=== PATIENT | male | born 1960 | race Caucasian/White ===

== ENCOUNTER 2021-01-02 14:12 | Inpatient (IN) ==
[2021-01-02 15:58] LABS: Basophils % 0.3 % (0.0-0.8); Eosinophils # 0.1 10*3/uL (0.0-0.87); Eosinophils % 1.6 % (0.00-10.9); Hematocrit 20.6 VOL% (42.0-52.0); Immature Granulocytes Absolute 0.03 #; Lymphocytes # 0.9 10*3/uL (1.4-4.0); Lymphocytes % 28.2 % (21.2-54.2); Mean Corpuscular HGB Conc 25.2 GM/DL (32-36); Mean Corpuscular Volume 64.4 FL (87-102); Mean Platelet Volume 8.7 FL (9.6-12.0); Monocytes % 12.2 % (1.7-12.7); NRBC # 0.04 10*3/uL; Neutrophils % 56.7 % (38.7-73.9); Platelet Count 183 T/CUMM (130-400); Red Cell Distribution Width 20.7 % (9.3-17.3); White Blood Count 3.1 T/CUMM (4-12)
[2021-01-02 16:07] LABS: Hemoglobin 5.2 GM/DL (14.0-18.0)
[2021-01-02 16:16] LABS: Albumin 3.8 G/DL (3.4-5.0); Bilirubin,Total 1.6 MG/DL (0.2-1.0); Calcium 9.1 MG/DL (8.5-10.1); Osmolality,Calculated 283.5 MOS/KG (273-304); Potassium 4.3 MMOL/L (3.5-5.1); Total Protein 7.3 G/DL (6.4-8.2)
[2021-01-02] MEDS ORDERED: SODIUM CHLORIDE 0.9% 1,000 ML IV PRN (16:49)
[2021-01-02] MEDS ORDERED: PANTOPRAZOLE INJ 80 MG in SODIUM CHLORIDE 0.9% 100 ML IV ONE (16:56)
[2021-01-02] MEDS ORDERED: GLUCAGON 1 MG VIAL IM PRN (18:14)
[2021-01-02] MEDS ORDERED: ACETAMINOPHEN 325 MG TABLET PO PRN (18:14)
[2021-01-02] MEDS ORDERED: ONDANSETRON 4 MG/2 ML VIAL IV PRN (18:14)
[2021-01-02] MEDS ORDERED: MORPHINE 4 MG/1 ML VIAL IV PRN (18:14)
[2021-01-02] MEDS ORDERED: DEXTROSE 50% 25 GM/50 ML VIAL IV PRN (18:14)
[2021-01-02] MEDS ORDERED: SODIUM CHLORIDE 0.45% 1,000 ML IV SCH (18:30)
[2021-01-02 18:59] LABS: % Iron Saturation 3.8 % (18-50); Ferritin 1.3 ng/ml (26-388)
[2021-01-02 19:04] LABS: Folate > 24.00 NG/ML (5.38-24.0); Vitamin B12 1835 PG/ML (211-911)
[2021-01-02 20:17] LABS: Band Neutrophils 1 % (0-10); Eosinophils 1 % (0-10); Lymphocytes 34 % (20-55); Nucleated Red Blood Cells 2 (0-5); Segmented Neutrophils 58 % (50-85); Total Cells Counted 100
[2021-01-02 20:18] LABS: Hypochromasia 3+; Microcytosis 3+; Platelet Estimate Normal; Polychromasia 1+
[2021-01-02] MEDS: AMIODARONE 200 MG TABLET PO SCH (22:59)
[2021-01-02] MEDS: FERROUS SULFATE 325 MG TABLET PO SCH (23:01)
[2021-01-02] MEDS: carvediloL 12.5 MG TABLET PO SCH (23:01)
[2021-01-02] MEDS: PANTOPRAZOLE 40 MG VIAL IV SCH (23:02)
[2021-01-02] MEDS: MULTIVITAMIN (CENTRUM) TABLET PO SCH (23:03)
[2021-01-02] MEDS: INSULIN REGULAR 100 UNIT/ML SUBCUT SCH (23:14)
[2021-01-03 06:28] LABS: Albumin 3.5 G/DL (3.4-5.0); Bilirubin,Total 1.6 MG/DL (0.2-1.0); Osmolality,Calculated 277.7 MOS/KG (273-304); Potassium 3.8 MMOL/L (3.5-5.1); Risk Ratio 2.39; Total Protein 6.8 G/DL (6.4-8.2); VLDL CHOLESTEROL 24.8 MG/DL
[2021-01-03 06:46] LABS: Basophils % 0.4 % (0.0-0.8); Eosinophils # 0.1 10*3/uL (0.0-0.87); Hematocrit 23.2 VOL% (42.0-52.0); Immature Granulocytes % 1.2 %; Immature Granulocytes Absolute 0.03 #; Lymphocytes # 0.9 10*3/uL (1.4-4.0); Lymphocytes % 33.6 % (21.2-54.2); Mean Corpuscular HGB Conc 26.7 GM/DL (32-36); Mean Corpuscular Volume 67.4 FL (87-102); Mean Platelet Volume 9.4 FL (9.6-12.0); Monocytes % 12.9 % (1.7-12.7); NRBC # 0.02 10*3/uL; Neutrophils % 49.9 % (38.7-73.9); Platelet Count 160 T/CUMM (130-400); Red Blood Count 3.44 MC/CUMM (3.8-5.5); Red Cell Distribution Width 24.2 % (9.3-17.3); White Blood Count 2.6 T/CUMM (4-12)
[2021-01-03 06:55] LABS: Hemoglobin 6.2 GM/DL (14.0-18.0)
[2021-01-03 07:57] LABS: Atypical Lymphocytes Few; Band Neutrophils 2 % (0-10); Eosinophils 2 % (0-10); Lymphocytes 35 % (20-55); Metamyelocytes 1 %; Platelet Estimate Normal; Segmented Neutrophils 54 % (50-85); Total Cells Counted 100
[2021-01-03 07:58] LABS: Anisocytosis 1+; Hypochromasia Slight; Poikilocytosis Slight; Tear Drop Cells Few
[2021-01-03] MEDS: INSULIN REGULAR 100 UNIT/ML SUBCUT SCH ×4 (08:47→21:58)
[2021-01-03] MEDS ORDERED: PANTOPRAZOLE 40 MG VIAL IV SCH (09:00)
[2021-01-03] MEDS: PANTOPRAZOLE 40 MG VIAL IV SCH ×2 (09:58→21:52)
[2021-01-03] MEDS ORDERED: SODIUM CHLORIDE 0.9% 1,000 ML IV PRN ×2 (10:01→14:45)
[2021-01-03] MEDS: amLODIPine 5 MG TABLET PO SCH (11:35)
[2021-01-03] MEDS: carvediloL 12.5 MG TABLET PO SCH ×2 (11:35→21:52)
[2021-01-03] MEDS: FERROUS SULFATE 325 MG TABLET PO SCH ×3 (11:35→21:52)
[2021-01-03] MEDS: CYANOCOBALAMIN 500 MCG TABLET PO SCH (11:36)
[2021-01-03] MEDS: ATORVASTATIN 40 MG TABLET PO SCH (11:36)
[2021-01-03] MEDS: AMIODARONE 200 MG TABLET PO SCH ×2 (11:36→21:52)
[2021-01-03] MEDS: LISINOPRIL/HCTZ 20-25 MG TABLET PO SCH (11:49)
[2021-01-03] MEDS: MULTIVITAMIN (CENTRUM) TABLET PO SCH (18:42)
[2021-01-04 05:39] LABS: Calcium 8.8 MG/DL (8.5-10.1); Osmolality,Calculated 277.7 MOS/KG (273-304); Potassium 3.9 MMOL/L (3.5-5.1)
[2021-01-04 06:36] LABS: Basophils % 0.4 % (0.0-0.8); Eosinophils # 0.1 10*3/uL (0.0-0.87); Eosinophils % 2.6 % (0.00-10.9); Hematocrit 27.6 VOL% (42.0-52.0); Hemoglobin 7.6 GM/DL (14.0-18.0); Immature Granulocytes % 1.1 %; Immature Granulocytes Absolute 0.03 #; Lymphocytes # 0.9 10*3/uL (1.4-4.0); Lymphocytes % 34.8 % (21.2-54.2); Mean Corpuscular HGB Conc 27.5 GM/DL (32-36); Mean Corpuscular Volume 70.1 FL (87-102); Mean Platelet Volume 9.7 FL (9.6-12.0); NRBC # 0.03 10*3/uL; Neutrophils % 48.1 % (38.7-73.9); Platelet Count 165 T/CUMM (130-400); Red Blood Count 3.94 MC/CUMM (3.8-5.5); Red Cell Distribution Width 25.5 % (9.3-17.3); White Blood Count 2.7 T/CUMM (4-12)
[2021-01-04 07:00] LABS: Platelet Estimate Normal
[2021-01-04 07:01] LABS: Anisocytosis 2+; Ovalocytes Few; Poikilocytosis 1+; Polychromasia Slight; Tear Drop Cells Few
[2021-01-04] MEDS: CYANOCOBALAMIN 500 MCG TABLET PO SCH (08:30)
[2021-01-04] MEDS: AMIODARONE 200 MG TABLET PO SCH ×2 (08:30→21:20)
[2021-01-04] MEDS: FERROUS SULFATE 325 MG TABLET PO SCH ×3 (08:31→21:20)
[2021-01-04] MEDS: ATORVASTATIN 40 MG TABLET PO SCH (08:31)
[2021-01-04] MEDS: amLODIPine 5 MG TABLET PO SCH (08:31)
[2021-01-04] MEDS: carvediloL 12.5 MG TABLET PO SCH ×2 (08:31→21:20)
[2021-01-04] MEDS: PANTOPRAZOLE 40 MG VIAL IV SCH ×2 (08:32→21:20)
[2021-01-04] MEDS: INSULIN REGULAR 100 UNIT/ML SUBCUT SCH ×4 (10:02→21:19)
[2021-01-04] MEDS ORDERED: SODIUM CHLORIDE 0.9% 1,000 ML IV PRN (10:03)
[2021-01-04] MEDS: LISINOPRIL/HCTZ 20-25 MG TABLET PO SCH (10:03)
[2021-01-04] MEDS ORDERED: MAGNESIUM CITRATE 300 ML BOTTLE PO ONE (18:00)
[2021-01-04] MEDS: MULTIVITAMIN (CENTRUM) TABLET PO SCH (18:38)
[2021-01-05 06:25] LABS: Basophils % 0.4 % (0.0-0.8); Eosinophils # 0.1 10*3/uL (0.0-0.87); Eosinophils % 2.2 % (0.00-10.9); Hematocrit 27.8 VOL% (42.0-52.0); Hemoglobin 7.7 GM/DL (14.0-18.0); Immature Granulocytes % 0.9 %; Immature Granulocytes Absolute 0.02 #; Lymphocytes # 0.8 10*3/uL (1.4-4.0); Lymphocytes % 34.8 % (21.2-54.2); Mean Corpuscular HGB Conc 27.7 GM/DL (32-36); Mean Corpuscular Volume 69.8 FL (87-102); Mean Platelet Volume 9.2 FL (9.6-12.0); Monocytes % 14.3 % (1.7-12.7); NRBC # 0.03 10*3/uL; Neutrophils % 47.4 % (38.7-73.9); Platelet Count 138 T/CUMM (130-400); Red Blood Count 3.98 MC/CUMM (3.8-5.5); Red Cell Distribution Width 25.4 % (9.3-17.3); White Blood Count 2.3 T/CUMM (4-12)
[2021-01-05 06:31] LABS: Calcium 8.7 MG/DL (8.5-10.1); Hypochromasia 2+; Microcytosis 1+; Osmolality,Calculated 281.4 MOS/KG (273-304); Platelet Estimate Adequate; Potassium 3.9 MMOL/L (3.5-5.1)
[2021-01-05 09:40] LABS: Hematocrit 30.4 VOL% (42.0-52.0)
[2021-01-05 10:11] LABS: Hemoglobin 8.5 GM/DL (14.0-18.0)
[2021-01-05] MEDS: carvediloL 12.5 MG TABLET PO SCH (10:18)
[2021-01-05] MEDS: amLODIPine 5 MG TABLET PO SCH (10:18)
[2021-01-05] MEDS: CYANOCOBALAMIN 500 MCG TABLET PO SCH (10:19)
[2021-01-05] MEDS: LISINOPRIL/HCTZ 20-25 MG TABLET PO SCH (10:19)
[2021-01-05] MEDS: FERROUS SULFATE 325 MG TABLET PO SCH ×2 (10:19→16:31)
[2021-01-05] MEDS: AMIODARONE 200 MG TABLET PO SCH (10:22)
[2021-01-05] MEDS: ATORVASTATIN 40 MG TABLET PO SCH (10:23)
[2021-01-05] MEDS: PANTOPRAZOLE 40 MG VIAL IV SCH (10:24)
[2021-01-05] MEDS: INSULIN REGULAR 100 UNIT/ML SUBCUT SCH ×2 (10:30→12:44)
[2021-01-05 12:34] VITALS: BP 132/52
== END 2021-01-05 16:14 | disposition home or self-care (01) | DRG 813 ==
LOC: N.ED 14:12 → N.EDINP 18:13 → N.TELEN 21:28
PROVIDERS: ADMIT Internal Medicine; ATTEND Internal Medicine